=== PATIENT | male | born 1990 | race Caucasian/White ===

== ENCOUNTER 2024-02-21 13:10 | Emergency (ER) | payer SELFPAY ==
[~2024-02-21] VITALS: Ht 177.8 cm; Wt 85.0 kg
[2024-02-21 13:18] VITALS: BP 146/72; PULSE 138; RESP 18
[2024-02-22] MEDS ORDERED: BICT1TAB PO (11:47)
== END 2024-02-21 16:53 | disposition left against medical advice (07) ==
LOC: ER 13:10
DX: M79.671 Pain in right foot (principal); Z53.21 Procedure and treatment not carried out due to patient leaving prior to being seen by health care provider

== ENCOUNTER 2024-02-21 18:52 | Inpatient (IN) | payer BC ==
[~2024-02-21] VITALS: Ht 180.3 cm; Wt 77.1 kg
[2024-02-21 19:02] VITALS: O2SAT 99
[2024-02-21 20:18] LABS: HEMOGLOBIN. 13.3 g/dL (14.0-18.0); MEAN CORPUSCULAR HEMOGLOBIN 31.1 pg (28.0-32.0); MEAN CORPUSCULAR VOLUME 91.3 fL (80.0-94.0); MEAN PLATELET VOLUME 8.2 fl (7.4-10.4); PLATELET 313 x1000/uL (130-400); RED BLOOD CELL COUNT 4.27 mill/uL (4.7-6.1); RED CELL DISTRIBUTION WIDTH 13.4 % (11.6-14.6); WHITE BLOOD COUNT 20.1 x1000/uL (4.5-11.0)
[2024-02-21 20:23] LABS: CHLORIDE 99 mEq/L (98-107); DIFFERENTIAL COMMENT 1; POTASSIUM 3.8 mEq/L (3.5-5.1); SODIUM 135 mEq/L (136-145)
[2024-02-21 20:24] LABS: CARBON DIOXIDE 19 mEq/L (21-32)
[2024-02-21 20:25] LABS: CALCIUM 9.6 mg/dL (8.7-10.4)
[2024-02-21 20:30] LABS: GLUCOSE 83 mg/dL (70-105); UREA NITROGEN BLOOD 32 mg/dL (9-23)
[2024-02-21 20:33] LABS: ETHANOL BLOOD < 10 mg/dL (<10)
[2024-02-21] MEDS ORDERED: VANCOMYCIN 1000MG/250ML 250 ML IV STA (21:12)
[2024-02-21] MEDS ORDERED: CEFEPIME 2GM IN DEXT 5% 100ML IV ONE (21:15)
[2024-02-21 21:27] LABS: CREATINE KINASE 4612 IU/L (46-171)
[2024-02-21 21:29] LABS: PLATELET ESTIMATE NORMAL
[2024-02-21] MEDS: LORAZEPAM 2MG/ML INJ IV ONE (21:29)
[2024-02-21] MEDS: LORAZEPAM 2MG/ML INJ IM ONE (21:45)
[2024-02-21] MEDS: HALOPERIDOL LACTATE 5MG/ML VIAL IM ONE (21:45)
[2024-02-21] MEDS ORDERED: DIPHENHYDRAMINE 25MG CAPSULE PO ONE (22:15)
[2024-02-21] MEDS ORDERED: LORAZEPAM 1MG TABLET PO ONE (22:15)
[2024-02-21] MEDS ORDERED: DIPHENHYDRAMINE 50MG CAPSULE PO ONE (22:15)
[2024-02-21] MEDS: LORAZEPAM 1MG TABLET PO ONE (22:25)
[2024-02-21] MEDS: DIPHENHYDRAMINE 25MG CAPSULE PO NR (22:46)
[2024-02-21] MEDS: SODIUM CHLORIDE 0.9% 1,000 ML IV ONE (22:47)
[2024-02-21] MEDS: CEFEPIME 2GM/100ML 100 ML IV SCH (23:27)
[2024-02-22] VITALS (8 sets, daily range): BP systolic 111–125; BP diastolic 56–75; PULSE 91–104; RESP 16–18; TEMP 35.6396–38.11416; O2SAT 97–99
[2024-02-22] MEDS: SODIUM CHLORIDE 0.9% 1,000 ML IV ONE (00:05)
[2024-02-22] MEDS: VANCOMYCIN 1G PREMIX 200 ML IV NR (00:24)
[2024-02-22] MEDS ORDERED: IPRATROPIUM/ALBUTEROL 0.5-3(2.5)MG/3ML NEB NEB PRN (00:30)
[2024-02-22] MEDS ORDERED: DOCUSATE SODIUM 100MG CAPSULE PO PRN (00:30)
[2024-02-22] MEDS ORDERED: ONDANSETRON HCL 4MG/2ML INJ IV PRN ×2 (00:30→10:30)
[2024-02-22] MEDS ORDERED: MAGNESIUM/ALUMINUM HYDROXIDE/SIMETHICONE 30ML UDC PO PRN (00:30)
[2024-02-22] MEDS ORDERED: CLONIDINE 0.1MG TABLET PO PRN (00:30)
[2024-02-22] MEDS ORDERED: ZOLPIDEM TARTRATE 5MG TABLET PO PRN (00:30)
[2024-02-22] MEDS: VANCOMYCIN 500MG/100ML IV NR (01:57)
[2024-02-22] MEDS: MVI, ADULT NO.1 10 ML, FOLIC ACID 1 MG, THIAMINE HCL 100 MG in SODIUM CHLORIDE 0.9% 1,0... IV NR (02:59)
[2024-02-22 06:43] LABS: CREATINE KINASE MB FRACTION 41.9 ng/mL (0.5-3.6)
[2024-02-22 08:26] LABS: CREATINE KINASE 9066 IU/L (46-171)
[2024-02-22 08:27] LABS: TROPONIN I HIGH SENSITIVITY 57 ng/L (3.0-53)
[2024-02-22] MEDS: ACETAMINOPHEN 325MG TABLET PO PRN (08:40)
[2024-02-22] MEDS: LORAZEPAM 0.5MG TABLET PO PRN (08:40)
[2024-02-22] MEDS: PANTOPRAZOLE SODIUM 40 MG/VIAL IV SCH (08:46)
[2024-02-22] MEDS: ENOXAPARIN 40MG/0.4ML SYR SUBCUT SCH (08:47)
[2024-02-22] MEDS: SODIUM CHLORIDE 0.9% 1,000 ML IV SCH (08:48)
[2024-02-22] MEDS: MORPHINE SULFATE 2 MG/ML INJ (NOT FOR IM USE) IV PRN (10:39)
[2024-02-22] MEDS ORDERED: NALOXONE HCL 0.4MG/ML VIAL IV PRN (10:45)
[2024-02-22] MEDS ORDERED: BICT1TAB PO (11:47)
[2024-02-22] MEDS: HYDROCODONE/ACETAMINOPHEN 5/325MG TABLET PO PRN (16:06)
[2024-02-22 17:01] LABS: CHLORIDE 105 mEq/L (98-107); POTASSIUM 3.7 mEq/L (3.5-5.1); SODIUM 137 mEq/L (136-145)
[2024-02-22 17:02] LABS: CARBON DIOXIDE 25 mEq/L (21-32)
[2024-02-22 17:03] LABS: CALCIUM 8.5 mg/dL (8.7-10.4)
[2024-02-22 17:07] LABS: CREATININE 0.8 mg/dL (0.6-1.3); GLUCOSE 120 mg/dL (70-105); UREA NITROGEN BLOOD 14 mg/dL (9-23)
[2024-02-22 17:08] LABS: CREATINE KINASE MB FRACTION 21.4 ng/mL (0.5-3.6)
[2024-02-22 17:09] LABS: TROPONIN I HIGH SENSITIVITY 25 ng/L (3.0-53)
[2024-02-22 17:20] LABS: CREATINE KINASE 7368 IU/L (46-171)
[2024-02-22 17:23] LABS: HEPATITIS B SURFACE ANTIGEN NEGATIVE (Negative)
[2024-02-22 17:44] LABS: HEPATITIS A AB IGM NEGATIVE (Negative); HEPATITIS B CORE AB IGM NEGATIVE (Negative)
[2024-02-22 17:45] LABS: HEPATITIS C AB NON REACTIVE (Neg) (Negative)
[2024-02-22] MEDS: LORAZEPAM 2MG/ML INJ IV PRN (22:50)
[2024-02-22] MEDS: FOLIC ACID 1 MG, THIAMINE HCL 100 MG, MVI, ADULT NO.1 10 ML in DEXTROSE 5% WATER 1,000 ML IV SCH (22:50)
[2024-02-23] VITALS: BP 122/77; PULSE 99; RESP 16; TEMP 36.55848; O2SAT 97
[2024-02-23] MEDS: LORAZEPAM 2MG/ML INJ IV PRN (03:04)
[2024-02-23 04:00] VITALS: BP 117/67; PULSE 95; RESP 17; TEMP 36.89184; O2SAT 99
[2024-02-23 08:17] VITALS: BP 96/66; PULSE 103; RESP 18; TEMP 37.2252; O2SAT 99
[2024-02-23 08:25] LABS: CARBON DIOXIDE 29 mEq/L (21-32); CHLORIDE 102 mEq/L (98-107); POTASSIUM 3.2 mEq/L (3.5-5.1); SODIUM 138 mEq/L (136-145)
[2024-02-23 08:27] LABS: CALCIUM 8.8 mg/dL (8.7-10.4)
[2024-02-23 08:31] LABS: CREATININE 0.7 mg/dL (0.6-1.3); GLUCOSE 119 mg/dL (70-105)
[2024-02-23 08:32] LABS: UREA NITROGEN BLOOD 8 mg/dL (9-23)
[2024-02-23 08:48] LABS: BASOPHILS % 0.2 % (0.0-2.0); EOSINOPHILS % 0.1 % (0.0-5.0); HEMATOCRIT. 31.9 % (42.0-52.0); HEMOGLOBIN. 10.7 g/dL (14.0-18.0); LYMPHOCYTES % 20.7 % (20.0-50.0); MEAN CORPUSCULAR HEMOGLOBIN 31.2 pg (28.0-32.0); MEAN CORPUSCULAR HGB CONC 33.4 g/dL (31.0-37.0); MEAN CORPUSCULAR VOLUME 93.2 fL (80.0-94.0); MONOCYTES % 13.9 % (2.0-8.0); NEUTROPHILS % 65.1 % (40.0-76.0); PLATELET 218 x1000/uL (130-400); RED BLOOD CELL COUNT 3.42 mill/uL (4.7-6.1); RED CELL DISTRIBUTION WIDTH 13.7 % (11.6-14.6); WHITE BLOOD COUNT 9.4 x1000/uL (4.5-11.0)
[2024-02-23] MEDS: VANCOMYCIN 1.25GM PMX (XELLIA) 250 ML IV SCH (08:53)
[2024-02-23] MEDS ORDERED: BIKTARVY PO SCH (09:00)
[2024-02-23 12:05] VITALS: BP 123/79; PULSE 98; RESP 19; TEMP 37.00296; O2SAT 97
[2024-02-23] MEDS ORDERED: VANCOMYCIN 1.25GM PMX (XELLIA) 250 ML IV SCH (21:00)
[2024-02-24] MEDS ORDERED: FAMOTIDINE 20MG/2ML VIAL IV SCH (09:00)
[2024-02-24 09:07] LABS: ABSOLUTE LYMPHOCYTES 2.1 x10E3/uL (0.7-3.1); ABSOLUTE MONOCYTES 1.3 x10E3/uL (0.1-0.9); ABSOLUTE NEUTROPHILS 6.1 x10E3/uL (1.4-7.0); BASOPHILS 0 % (Not Estab.); EOSINOPHILS 0 % (Not Estab.); HEMATOCRIT 32.4 % (37.5-51.0); HEMOGLOBIN 10.5 g/dL (13.0-17.7); IMMATURE GRANULOCYTES 0 % (Not Estab.); LYMPHOCYTES 22 % (Not Estab.); MEAN CORPUSCULAR HEMOGLOBIN 30.8 pg (26.6-33.0); MEAN CORPUSCULAR HGB CONC. 32.4 g/dL (31.5-35.7); MEAN CORPUSCULAR VOLUME 95 fL (79-97); MONOCYTES 13 % (Not Estab.); NEUTROPHILS 65 % (Not Estab.); PLATELETS 226 x10E3/uL (150-450); RBC 3.41 x10E6/uL (4.14-5.80); RED CELL DISTRIBUTION WIDTH 12.4 % (11.6-15.4); WBC 9.6 x10E3/uL (3.4-10.8)
[2024-02-24 17:07] LABS: % CD 3 POS. LYMPHOCYTES 77.5 % (57.5-86.2); ABSOLUTE CD 3 1628 /uL (622-2402); ABSOLUTE CD 4 HELPER 882 /uL (359-1519); ABSOLUTE CD 8 SUPPRESSOR 735 /uL (109-897)
== END 2024-02-23 14:53 | disposition left against medical advice (07) | DRG 974 ==
LOC: ER 18:52 → MICUSO 21:18 → 7WST 02-22 08:18
PROVIDERS: ADMIT Internal Medicine; ATTEND Internal Medicine
DX: A41.9 Sepsis, unspecified organism (principal); G92.8 Other toxic encephalopathy; B20 Human immunodeficiency virus [HIV] disease; M62.82 Rhabdomyolysis; Z59.00 Homelessness unspecified; N17.9 Acute kidney failure, unspecified; S92.001A Unspecified fracture of right calcaneus, initial encounter for closed fracture; Z20.822 Contact with and (suspected) exposure to COVID-19; F10.229 Alcohol dependence with intoxication, unspecified; F15.10 Other stimulant abuse, uncomplicated; Z53.29 Procedure and treatment not carried out because of patient's decision for other reasons; Z87.891 Personal history of nicotine dependence; X58.XXXA Exposure to other specified factors, initial encounter; Y93.89 Activity, other specified; Y92.89 Other specified places as the place of occurrence of the external cause; Y99.8 Other external cause status
CPT/HCPCS: 36415; 71045; 73610; 73630; 73700; 80048; 80320; 82550; 82553; 83605; 84145; 84484; 85025; 86359; 86360; 86705; 86709; 87340; 87426; 87804; 93005; 93970; 99291; J0692; J1630; J1650; J2060; J2270; J2470; J3370; J3411; J3490; J7030; J7070; Q0163; G0480